=== PATIENT | female | born 1980 | race Two or more races ===

== ENCOUNTER → 2023-08-08 14:49 | Outpatient (REF) | payer OTHER, SELFPAY | LOC: HWWDC 14:49 | PROVIDERS: ATTENDING PHYSICIAN Physician Assistant Medical | DX: Z12.31 Encounter for screening mammogram for malignant neoplasm of breast (principal); M79.671 Pain in right foot; M79.672 Pain in left foot | CPT/HCPCS: 73630; 77063; 77067 ==

== ENCOUNTER → 2023-12-28 14:23 | Outpatient (REF) | payer OTHER, SELFPAY | LOC: HWRAD 14:23 | PROVIDERS: ATTENDING PHYSICIAN Physician Assistant Medical | DX: M54.2 Cervicalgia (principal) | CPT/HCPCS: 76536 ==